=== PATIENT | male | born 1955 | race Caucasian/White ===

== ENCOUNTER 2016-04-30 11:38 | Observation (INO) | payer MEDICARE ==
[~2016-04-30] VITALS: Ht 175.3 cm; Wt 91.0 kg
[~2016-04-30 11:38] MED LIST: BUPR300T PO; FLUO20TA20 PO; PERC10TA27 PO; PLAV75TA PO; QUIN20TA22 PO; VYTO10TA39 PO
[2016-04-30 11:40] VITALS: BP_SYST 152; BP_DIAS 152; BP_DIAS 78; PULSE 90; RESP 14; TEMP 97.9; O2SAT 99
[2016-04-30 13:07] LABS: AUTOMATED NEUTROPHIL # 5.9 TH/MM3 (1.8-7.7); BASOPHIL # 0.1 TH/MM3 (0-0.2); BASOPHIL % 0.7 % (0.0-2.0); EOSINOPHIL # 0.3 TH/MM3 (0-0.4); EOSINOPHIL % 2.9 % (0.0-4.0); HEMO FLAGS DIFF FINAL; LYMPH % 29.9 % (9.0-44.0); LYMPHOCYTE # 2.9 TH/MM3 (1.0-4.8); MEAN CELL VOLUME 90.8 FL (80.0-100.0); MEAN CORPUSCULAR HEMOGLOBIN 31.5 PG (27.0-34.0); MEAN CORPUSCULAR HGB CONC 34.7 % (32.0-36.0); MONO % 6.4 % (0.0-8.0); NEUT % 60.1 % (16.0-70.0); PLATELET COUNT 254 TH/MM3 (150-450); RED BLOOD COUNT 5.07 MIL/MM3 (4.50-5.90); RED CELL DISTRIBUTION WIDTH 12.6 % (11.6-17.2); WHITE BLOOD COUNT 9.8 TH/MM3 (4.0-11.0)
--- NOTE | 2016-04-30 13:11 | RADRPT ---
EXAM DATE/TIME: 04/30/2016 12:51 [facility] COMPARISON: No previous studies available for comparison. INDICATIONS : Chest pain. MEDICAL HISTORY : Myocardial infarction. SURGICAL HISTORY : Coronary artery stent. Pacemaker. ENCOUNTER: Initial ACUITY: 2 days PAIN SCORE: 5/10 LOCATION: middle chest. FINDINGS: A single view of the chest demonstrates pacer leads overlying right atrium and right ventricle. Minim al basilar atelectasis. No effusion or pneumothorax. Heart size mildly enlarged. CONCLUSION: 1. Minimal basilar atelectasis. Pacer leads overlie right atrium and right ventricle. Juan Antonio Gutierrez MD on April 30, 2016 at 13:08 Board Certified Radiologist. This report was verified electronically.
[2016-04-30 13:27] LABS: ANION GAP 10 MEQ/L (5-15); BLOOD UREA NITROGEN 13 MG/DL (7-18); CHLORIDE 104 MEQ/L (98-107); GLOMERULAR FILTRATION RATE 81 ML/MIN (>89); POTASSIUM 3.8 MEQ/L (3.5-5.1); SODIUM (NA) 138 MEQ/L (136-145)
[2016-04-30 13:33] LABS: CREATINE KINASE 76 U/L (39-308)
--- NOTE | 2016-04-30 15:02 | PD ---
HPI Chief Complaint: Chest Pain Time Seen by Provider: 14:35 Travel History International Travel<30 days: No Contact w/Intl Traveler<30days: No Traveled to known affect area: No History of Present Illness HPI This patient complains of some chest pain and pressure. Located in the center sternum. Symptoms are nonexertional. Been going on and off for a couple weeks. He says that 2 weeks ago while in [place] visiting he had to separate syncopal episodes. He has not had them evaluated. He does have a pacer. He has 2 stents. No recent cardiac evaluation per his report. Symptoms severity was moderate. No alleviating factors. Not currently having any chest discomfort. PFSH Past Medical History Hx Anticoagulant Therapy: Yes (plavix) Cancer: Yes (melanoma) Cardiac Catheterization: Yes (WITH STENT PLACEMENT) Cardiovascular Problems: Yes (DE/ Stent) High Cholesterol: Yes Chest Pain: No Coronary Artery Disease: Yes Diabetes: No Gastrointestinal Disorders: Yes (IBS) Glaucoma: No Hepatitis: No Hiatal Hernia: No Hypertension: Yes Respiratory: Yes (MARY) Integumentary: No Myocardial Infarction: Yes Thyroid Disease: No Past Surgical History Joint Replacement: Yes (RIGHT THUMB) Pacemaker: Yes Thoracic Surgery: No Social History Alcohol Use: Yes (OCC.) Tobacco Use: No Substance Use: No Allergies-Medications (Allergen,Severity, Reaction): Coded Allergies: Aspirin (Verified Adverse Reaction, Severe, 04/30/16) Morphine (Verified Adverse Reaction, Severe, 04/30/16) Reported Meds & Prescriptions Reported Meds & Active Scripts Active Review of Systems General / Constitutional: No: Fever Eyes: No: Visual changes HENT: Positive: Lightheadedness, No: Headaches Cardiovascular: Positive: Chest Pain or Discomfort, Syncope Respiratory: No: Shortness of Breath Gastrointestinal: No: Abdominal Pain Genitourinary: No: Dysuria Musculoskeletal: No: Pain Skin: No Rash Neurologic: Positive: Dizziness, Syncope, No: Weakness Psychiatric: No: Depression Endocrine: No: Polydipsia Hematologic/Lymphatic: No: Easy Bruising Physical Exam Narrative GENERAL: Well-nourished, well-developed patient in no apparent distress. SKIN: Warm and dry. HEAD: Atraumatic. Normocephalic. EYES: Pupils equal and round. No scleral icterus. No injection or drainage. ENT: No nasal bleeding or discharge. Mucous membranes pink and moist. NECK: Trachea midline. No JVD. CARDIOVASCULAR: Regular rate and rhythm. No murmur appreciated. RESPIRATORY: No accessory muscle use. Clear to auscultation. Breath sounds equal bilaterally. GASTROINTESTINAL: Abdomen soft, non-tender, nondistended. Hepatic and splenic margins not palpable. MUSCULOSKELETAL: No obvious deformities. No clubbing. No cyanosis. No edema. NEUROLOGICAL: Awake and alert. No obvious cranial nerve deficits. Motor grossly within normal limits. Normal speech. PSYCHIATRIC: Appropriate mood and affect; insight and judgment normal. Data Data Last Documented VS Vital Signs Date Time Temp Pulse Resp B/P Pulse Ox O2 Delivery O2 Flow Rate FiO2 04/30/16 11:40 97.9 90 14 /152 99 Room Air Orders Electrocardiogram (04/30/16 ) Complete Blood Count With Diff (04/30/16 12:31) Basic Metabolic Panel (Bmp) (04/30/16 12:31) Ckmb (Isoenzyme) Profile (04/30/16 12:31) Troponin I (04/30/16 12:31) Chest, Single Ap (04/30/16 12:31) Admit Order (Ed Use Only) (04/30/16 15:32) Labs Laboratory Tests Test 04/30/16 12:46 White Blood Count 9.8 TH/MM3 Red Blood Count 5.07 MIL/MM3 Hemoglobin 16.0 GM/DL Hematocrit 46.0 % Mean Corpuscular Volume 90.8 FL Mean Corpuscular Hemoglobin 31.5 PG Mean Corpuscular Hemoglobin 34.7 % Concent Red Cell Distribution Width 12.6 % Platelet Count 254 TH/MM3 Mean Platelet Volume 7.4 FL Neutrophils (%) (Auto) 60.1 % Lymphocytes (%) (Auto) 29.9 % Monocytes (%) (Auto) 6.4 % Eosinophils (%) (Auto) 2.9 % Basophils (%) (Auto) 0.7 % Neutrophils # (Auto) 5.9 TH/MM3 Lymphocytes # (Auto) 2.9 TH/MM3 Monocytes # (Auto) 0.6 TH/MM3 Eosinophils # (Auto) 0.3 TH/MM3 Basophils # (Auto) 0.1 TH/MM3 CBC Comment DIFF FINAL Differential Comment Sodium Level 138 MEQ/L Potassium Level 3.8 MEQ/L Chloride Level 104 MEQ/L Carbon Dioxide Level 24.0 MEQ/L Anion Gap 10 MEQ/L Blood Urea Nitrogen 13 MG/DL Creatinine 0.95 MG/DL Estimat Glomerular Filtration 81 ML/MIN Rate Random Glucose 90 MG/DL Calcium Level 9.1 MG/DL Total Creatine Kinase 76 U/L Troponin I LESS THAN 0.02 NG/ML MDM Medical Decision Making Medical Screen Exam Complete: Yes Emergency Medical Condition: Yes Medical Record Reviewed: Yes Differential Diagnosis Differential diagnosis includes DE, angina, pericarditis, pleurisy, GERD, anxiety. Narrative Course I have reviewed the patient's electronic medical record. IV placed I reviewed the EKG which shows sinus rhythm but no acute ST elevation I reviewed the chest x-ray which is normal Extended cardiac monitoring shows sinus rhythm without ectopy CBC is normal Metabolic profile is normal CK is normal Troponin is normal Coagulation studies are normal Patient requires telemetry observation for evaluation of chest pain and syncope. I discussed with hospitalist. He recommends [employer] rep be called in to interrogate the pacer which we have done. Diagnosis Primary Impression: Precordial chest pain Additional Impression: Syncope Qualified Code: R55 - Syncope, unspecified syncope type Admitting Information Admitting Physician Requests: Observation Qasim Jay MD Apr 30, 2016 15:02
[2016-04-30] MEDS ORDERED: SODIUM CHLORIDE 0.9% FLUSH 5 ML FLUSH FLUSH PRN (16:00)
[2016-04-30] MEDS ORDERED: ONDANSETRON HCL 4 MG/2 ML VIAL IVP PRN (16:00)
[2016-04-30] MEDS ORDERED: NALOXONE HCL 0.4 MG/ML AMP IV PRN (16:00)
--- NOTE | 2016-04-30 16:38 | MH ---
cc: MATT WILLIAM DATE OF ADMISSION 04/30/2016 DATE OF [address] Matt William. PRIMARY CARE PHYSICIAN Dr. Goff. REASON FOR ADMISSION Chest pain and dizziness. HISTORY OF THE PRESENT ILLNESS The patient is very pleasant 60-year male with significant past history of CAD status post SD in the past. Also has a history of stent placement and pacemaker placement. As per the patient he was in [place] during his vacation. He had on and off chest pressure. The pressure is mild to moderate type. It is kind of retrosternal type. There was no other associated symptoms. But sometimes he has dizziness which is without chest pain. He passed out twice. He passed out a week ago Friday and then last Friday. Both times he was getting dizzy and then he blacked out and fell down. He regained consciousness. He has no other associated symptoms with it. Because of these reason he came to the emergency room. In the emergency room he was evaluated by the emergency room physician, because of these symptoms was recommended for admission. At present the patient has no chest pain. There is no dizziness. He is feeling better. But at times within the past week to two weeks he had chest pressure and jaw pressure. PAST MEDICAL HISTORY 1. CAD status post stenting. 2. History of SD in the past. 3. History of melanoma. 4. History of diabetes. 5. History of obstructive sleep apnea. 6. History of high cholesterol. 7. An ex-smoker, he used to smoke. He quit one year ago. 8. Also a history of pacemaker placement. REVIEW OF SYSTEMS As described in the history of present illness. Otherwise negative for 10 systems. SOCIAL HISTORY The patient does not smoke, he quit one year ago. He does not do any drugs. He occasionally drinks. FAMILY HISTORY Noncontributory. PHYSICAL EXAMINATION GENERAL: The patient is alert and oriented times three. Well built, well-nourished lying in bed without any apparent distress at present. VITAL SIGNS: Show the patient is afebrile. Pulse is in the 90s, respiratory rate 14, blood pressure 152/100, pulse oximetry is 99% on room air. HEENT: Head is atraumatic, normocephalic. Eyes negative conjunctivae injection or icterus. Mouth unremarkable. NECK: Supple. Negative increase in JVD. Negative thyromegaly. Central trachea. CHEST: Clear to auscultation. CARDIOVASCULAR: S1 and S2 audible. Unable to hear any S3 gallop. ABDOMEN: Soft, non-tender, no organomegaly. Positive bowel sounds. MUSCULOSKELETAL: Extremities no cyanosis or pedal edema appreciated. TELEGRAPHIC INSTRUMENT SUPERVISOR: Grossly intact. SKIN: Warm and moist. PSYCHIATRIC: Appropriate mood and affect. LABORATORY DATA Investigations, CBC within normal limits. BMP within normal limits. Troponin less than 0.02. CK 76. IMAGING Chest x-ray was done which shows minimal bibasilar atelectasis. Pacer lead overlying the right atrium and right ventricle. EKG shows electronic atrial pacer. Incomplete right bundle-branch block. ASSESSMENT 1. Chest pain, pressure with a history of CAD and history of SD in the past, rule out SD. 2. Dizziness with a syncopal episode. 3. Uncontrolled hypertension. 4. Ex-smoker. 5. History status post pacemaker placement. PLAN The patient admitted to the floor. Continue with tele. Cardiology consult. Serial troponin. Nitro paste. Continue some of home medication. Monitor blood pressure. Continue Plavix. As per the patient he does not take aspirin because of severe heartburn. We will avoid aspirin. Condition discussed with the patient in detail. See orders. Further recommendation to follow as the patient progresses. Condition is guarded. Matt William MD JP/DHRUV /3:46 PM /4:11 PM
[2016-04-30] MEDS ORDERED: ALPR0.5T3 PO (16:55)
[2016-04-30] MEDS ORDERED: CLOP75TA PO (16:55)
[2016-04-30] MEDS ORDERED: FLUO1TAB3 PO (16:55)
[2016-04-30] MEDS ORDERED: FOLI5CAP PO (16:55)
[2016-04-30] MEDS: ENOXAPARIN SODIUM 40 MG/0.4 ML SYRINGE SQ SCH (16:55)
[2016-04-30] MEDS ORDERED: FLUO20CA4 PO (16:55)
[2016-04-30] MEDS ORDERED: QUIN20TA4 PO (16:55)
[2016-04-30] MEDS ORDERED: EVOL1.7I (16:55)
[2016-04-30] MEDS ORDERED: WELLTAB39 PO (16:55)
[2016-04-30] MEDS: SODIUM CHLOR 0.9% 1000 ML INJ 1,000 ML IV SCH (16:56)
[2016-04-30 17:11] VITALS: BP 147/81; PULSE 73; RESP 18; O2SAT 97
[2016-04-30] MEDS: NITROGLYCERIN 2% OINT 1 GM PACKET TOPICAL SCH ×2 (18:00→23:56)
[2016-04-30 20:07] VITALS: BP 128/72; PULSE 70; PULSE 72; RESP 18; TEMP 97.8; O2SAT 98
[2016-04-30] MEDS: ACETAMINOPHEN 325 MG TAB PO PRN (20:29)
[2016-04-30] MEDS: SODIUM CHLORIDE 0.9% FLUSH 5 ML FLUSH FLUSH SCH (20:29)
[2016-04-30] MEDS: METOPROLOL TARTRATE 25 MG TAB PO SCH (21:00)
[2016-04-30] MEDS: TEMAZEPAM 15 MG CAP PO PRN (21:00)
[2016-05-01] VITALS (9 sets, daily range): BP systolic 98–139; BP diastolic 54–86; PULSE 67–75; RESP 18–20; TEMP 97.5–98.9; O2SAT 96–98
[2016-05-01] MEDS: SODIUM CHLOR 0.9% 1000 ML INJ 1,000 ML IV SCH ×3 (01:49→21:49)
[2016-05-01] MEDS: ACETAMINOPHEN 325 MG TAB PO PRN ×3 (03:43→15:59)
[2016-05-01 04:00] LABS: AUTOMATED NEUTROPHIL # 4.2 TH/MM3 (1.8-7.7); BASOPHIL # 0.1 TH/MM3 (0-0.2); BASOPHIL % 0.7 % (0.0-2.0); EOSINOPHIL # 0.3 TH/MM3 (0-0.4); EOSINOPHIL % 3.4 % (0.0-4.0); HEMO FLAGS DIFF FINAL; LYMPH % 37.6 % (9.0-44.0); LYMPHOCYTE # 3.2 TH/MM3 (1.0-4.8); MEAN CELL VOLUME 90.2 FL (80.0-100.0); MEAN CORPUSCULAR HEMOGLOBIN 31.7 PG (27.0-34.0); MEAN CORPUSCULAR HGB CONC 35.1 % (32.0-36.0); MONO % 7.7 % (0.0-8.0); NEUT % 50.6 % (16.0-70.0); PLATELET COUNT 226 TH/MM3 (150-450); RED BLOOD COUNT 4.55 MIL/MM3 (4.50-5.90); RED CELL DISTRIBUTION WIDTH 12.5 % (11.6-17.2); WHITE BLOOD COUNT 8.4 TH/MM3 (4.0-11.0)
[2016-05-01 04:12] LABS: ANION GAP 8 MEQ/L (5-15); BICARBONATE 25.6 MEQ/L (21.0-32.0); BLOOD UREA NITROGEN 15 MG/DL (7-18); CHLORIDE 107 MEQ/L (98-107); GLOMERULAR FILTRATION RATE 67 ML/MIN (>89); POTASSIUM 4.3 MEQ/L (3.5-5.1); SODIUM (NA) 141 MEQ/L (136-145)
[2016-05-01] MEDS: NITROGLYCERIN 2% OINT 1 GM PACKET TOPICAL SCH ×3 (05:58→18:00)
[2016-05-01] MEDS ORDERED: PROZ20CA11 PO (07:53)
--- NOTE | 2016-05-01 08:26 | MB ---
cc: ANDREEA MANCUSO M.D. DATE OF CONSULTATION 05/01/2016 REASON FOR CONSULTATION Evaluation of syncope and chest pain HISTORY OF PRESENT ILLNESS Gato Hernandez is a 60-year-old man well-known to me. He has known coronary artery disease. He had an inferior ST-segment elevation CO October 08, 2000. He received thrombolytic therapy and had stenting of the right coronary artery. This was a 3.0 x 18 mm tetra stent in the mid right coronary artery. Then a couple weeks later, he went back in for a stent of the circumflex artery. His last heart cath was performed July 01, 2007. At that time, his ejection fraction was 55% with normal wall motion. LAD had a 20-30% ostial diagonal branch stenosis. Circumflex artery showed a patent stent. Right coronary artery showed 20-30% proximal disease. Mid stent was widely patent and 30% mid disease. He has been treated medically. He describes having chest discomfort like a pressure in his chest lasting anywhere from 15 minutes to an hour that occurs sporadically once or twice a week. It is not necessarily exercise related. He thinks it is a little more frequent. He does not have true exertional angina. He was in [place] for two weeks on vacation and he says he was extremely stressed out due to family relationships with his daughter. The degree of stress he describes as quite severe. About two weeks ago, he was walking with his daughter to an medical physiologist's office and he describes feeling a "a big carrasquillo". His legs felt weak and he thought he was going to pass out. He sat down on the ground and in about five minutes, he felt better and continued on. New , he got up to walk to the kitchen. He actually passed out at that time. His was with him. He felt dizzy for a while. He says things kind of slowed down like they were in slow motion. He was embarrassed because there was a lot of company at the house. He recovered and had no further spells. The patient, once he got back to [place], contacted me about the chest pain and syncope and I advised him to go the ER and he subsequently has been admitted. He has had no chest discomfort here. His cardiac enzymes are normal. He has had no syncopal or presyncopal episodes here. He quit smoking about a year ago or less. PAST MEDICAL HISTORY Includes: 1. Anxiety 2. Sleep apnea, but does not use apnea machine 3. Coronary artery disease 4. COPD 5. Degenerative joint disease involving his hands, hips and ankles 6. Depression 7. Diverticulosis 8. Hyperlipidemia 9. Essential hypertension 10. Irritable bowel syndrome 11. Previous back pain 12. Previous melanoma removed in 1997 from the left leg 13. Previous CO 14. Medtronic pacemaker first one inserted around 2576-6578, a second one about six months ago. 15. Peripheral arterial disease. 16. Pre-diabetes 17. Sick sinus syndrome PAST SURGICAL HISTORY Includes: 1. His coronary stents 2. Carpal tunnel release 3. Pacemaker 4. Thoracic outlet syndrome surgery on the left side 5. Thumb surgery 6. Vertebral fracture from a fall at age 36 MEDICATIONS Brought to admission include: 1. Alprazolam 2. Bupropion 3. Clopidogrel 75 mg 4. fluoxetine 20 mg 5. Oxycodone 6. Acetaminophen 10/325 every six hours as needed 7. Quinapril 20 mg daily 8. Repatha 140 mg every two weeks 9. Vitamins 10. Vytorin 10/80 daily ALLERGIES HE IS INTOLERANT OF ASPIRIN DUE TO STOMACH UPSET. MORPHINE MAKES HIM PARANOID. SOCIAL HISTORY He did not quit smoking until about a year ago or less. Alcohol use is only occasional. He is . He has three children. REVIEW OF SYSTEMS Review of systems is negative except for what is mentioned in the History of present illness. PHYSICAL EXAMINATION A well-developed, well-nourished man in no acute distress. VITAL SIGNS: Charted. HEENT: Exam unremarkable. NECK: No JVD, no bruits. CHEST: Clear to auscultation. He has a pacemaker in the left infraclavicular region well-healed. CARDIAC: Exam S1-S2 regular rate rhythm. No murmurs, gallops. ABDOMEN: Soft and nontender. No masses, organomegaly. EXTREMITIES: No clubbing, cyanosis or edema. His EKG's here demonstrate atrially paced rhythm, incomplete right bundle branch block. His cardiac enzymes, his troponin has been checked three times with all values being normal. Hematocrit 41, creatinine is 1.2 and 0.95 yesterday. Chest x-ray showed minimal basilar atelectasis and pacemaker leads in the right atrium and right ventricle. IMPRESSION A 60-year-old man with known coronary artery disease. He has been extremely stressed the last couple of weeks due to family relationships and being out of state. He had two episodes, one of presyncope, one of syncope. His pacemaker has been interrogated. There were no arrhythmias on the New years Even. There was an episode of SVT lasting about two seconds March 25 at 2:33 p.m. both charted to if that correlates with anything clinically. The chest discomfort has worsened, but not classic. He does not have exertional angina. RECOMMENDATIONS I am going to start with a Lexiscan nuclear stress test, a carotid Doppler and a 2-D echo. If we find significant ischemia, I will plan to proceed with a cardiac catheterization. We will see how as workup progresses. Further therapy be determined. MD REJI Madrid/RADHA /7:30 AM /8:07 AM
--- NOTE | 2016-05-01 08:38 | HHI.PR ---
Subjective Subjective Remarks mild chest discomfort, none now some anxiety no sob tele reviewed, artifact seen by Dr. Estes, NPO for STT today has no other questions Review of Systems Constitutional Constitutional Remarks 12 point ROS completed, negative except as noted above Vitals/Results Vital Signs Vital Signs Date Time Temp Pulse Resp B/P Pulse Ox O2 Delivery O2 Flow Rate FiO2 05/01/16 07:25 97.6 73 18 123/83 97 05/01/16 04:35 98.9 72 18 98/54 96 05/01/16 00:59 98.9 67 18 122/73 97 04/30/16 20:07 72 04/30/16 20:07 97.8 70 18 128/72 98 04/30/16 17:11 73 18 147/81 97 Room Air 04/30/16 11:40 97.9 90 14 152/78 99 Room Air CBC/BMP: 05/01/16 0337 05/01/16 0337 Lab Results Laboratory Tests Test 04/30/16 04/30/16 05/01/16 12:46 21:33 03:37 White Blood Count 9.8 TH/MM3 8.4 TH/MM3 Red Blood Count 5.07 MIL/MM3 4.55 MIL/MM3 Hemoglobin 16.0 GM/DL 14.4 GM/DL Hematocrit 46.0 % 41.0 % Mean Corpuscular Volume 90.8 FL 90.2 FL Mean Corpuscular Hemoglobin 31.5 PG 31.7 PG Mean Corpuscular Hemoglobin 34.7 % 35.1 % Concent Red Cell Distribution Width 12.6 % 12.5 % Platelet Count 254 TH/MM3 226 TH/MM3 Mean Platelet Volume 7.4 FL 7.5 FL Neutrophils (%) (Auto) 60.1 % 50.6 % Lymphocytes (%) (Auto) 29.9 % 37.6 % Monocytes (%) (Auto) 6.4 % 7.7 % Eosinophils (%) (Auto) 2.9 % 3.4 % Basophils (%) (Auto) 0.7 % 0.7 % Neutrophils # (Auto) 5.9 TH/MM3 4.2 TH/MM3 Lymphocytes # (Auto) 2.9 TH/MM3 3.2 TH/MM3 Monocytes # (Auto) 0.6 TH/MM3 0.6 TH/MM3 Eosinophils # (Auto) 0.3 TH/MM3 0.3 TH/MM3 Basophils # (Auto) 0.1 TH/MM3 0.1 TH/MM3 CBC Comment DIFF FINAL DIFF FINAL Differential Comment Sodium Level 138 MEQ/L 141 MEQ/L Potassium Level 3.8 MEQ/L 4.3 MEQ/L Chloride Level 104 MEQ/L 107 MEQ/L Carbon Dioxide Level 24.0 MEQ/L 25.6 MEQ/L Anion Gap 10 MEQ/L 8 MEQ/L Blood Urea Nitrogen 13 MG/DL 15 MG/DL Creatinine 0.95 MG/DL 1.12 MG/DL Estimat Glomerular Filtration 81 ML/MIN 67 ML/MIN Rate Random Glucose 90 MG/DL 102 MG/DL Calcium Level 9.1 MG/DL 8.4 MG/DL Total Creatine Kinase 76 U/L Troponin I LESS THAN 0.02 LESS THAN 0.02 LESS THAN 0.02 NG/ML NG/ML NG/ML Physical Exam General General Appearance: Well Developed, Well Nourished, No Acute Distress, Comfortable Eyes Eye Exam: Pupils Equal Ears & Nose Ears & Nose Exam: Nasal Mucosa [place] Throat Throat Exam: Oral Mucosa [place] & Moist Neck Neck Exam: Neck Supple, Trachea Midline Pulmonary Resp Exam: Clear Bilaterally Cardiology CV Exam: Regular, Good Perfusion Gastrointestinal/Abdomen GI Exam: Soft, Non-Tender, Bowel Sounds Present, Non-Distended Musculoskeletal MS Exam: Joints Intact Integumentary Skin Exam: Warm, Dry Extremeties Extremities Exam: No Edema, Pedal Pulses Palpable Neurologic Neuro Exam: Alert, Awake, Oriented, Speech Clear, Moving All Extremities, No Focal Deficits Psychiatric Psych Exam: Appropriate Responses VTE Prophylaxis VTE Prophylaxis Meds: Lovenox PUD Prophylasis PUD Prophylaxis: Protonix Assessment/Plan Problem List: (1) Precordial chest pain (2) Syncope (3) Uncontrolled hypertension (4) prior tobacco use (5) Anxiety Assessment/Plan appreciate cardiology input serial cardiac enzymes negative Dr. Estes has evaluated, plans for STT today, echo and CUS Telemetry monitoring Continue Plavix DC Ntg, c/o headache c/o anxiety, resume Xanax, Prozac, Wellbutrin Continue PPI Lovenox for DVT prophylaxis will f/u on test results, if neg poss dc later today D/W RN D/W Dr. William D/W pt. This patient was seen by myself and Dr. William, this note is written on his behalf. Problem Qualifiers (1) Syncope: Qualified Code: R55 - Syncope, unspecified syncope type Elizabeth Whitten May 01, 2016 08:38
[2016-05-01] MEDS: SODIUM CHLORIDE 0.9% FLUSH 5 ML FLUSH FLUSH SCH ×2 (08:57→21:00)
[2016-05-01] MEDS: FLUoxetine HCL 20 MG CAP PO SCH ×2 (08:58→21:20)
[2016-05-01] MEDS: buPROPion HCL 150 MG SUSTAINED RELEASE TAB PO SCH ×2 (08:58→21:00)
[2016-05-01] MEDS: CLOPIDOGREL 75 MG TAB PO SCH (08:58)
[2016-05-01] MEDS: FOLIC ACID 1 MG TAB PO SCH (08:58)
[2016-05-01] MEDS: PANTOPRAZOLE SOD 40 MG DELAYED RELEASE TAB PO SCH (08:58)
[2016-05-01] MEDS: METOPROLOL TARTRATE 25 MG TAB PO SCH ×2 (09:00→21:20)
[2016-05-01] MEDS: LISINOPRIL 20 MG TAB PO SCH (09:00)
--- NOTE | 2016-05-01 09:37 | RADRPT ---
EXAM DATE/TIME: 05/01/2016 08:40 [facility] COMPARISON: No previous studies available for comparison. INDICATIONS : Syncope. MEDICAL HISTORY : Myocardial infarction. Hypercholesterolemia. Hypertension. Coronary artery disease. Anticoagulant the rapy, Plavix. Melanoma. SURGICAL HISTORY : Pacemaker. Cardiac catheterization. Bilateral carpal tunnel repair. ENCOUNTER: Initial ACUITY: 1 day PAIN SCORE: 7/10 LOCATION: Bilateral neck PEAK SYSTOLIC VELOCITIES (cm/sec): ICA/CCA RATIO: Right: 2.0 Left: 1.2 ICA: Right: 123 Left: 101 CCA: Right: 62 Left: 85 ECA: Right: 94 Left: 167 VERTEBRAL: Right: 34 antegrade Left: 73 antegrade Elevated flow velocities and ICA/CCA ratios have been found to correlate with increased degrees of vessel stenosis, calculated as percentage of diameter relative to a normal segment of distal ICA/CCA FINDINGS: RIGHT CAROTID: Moderate plaque is present on the right with elevated ratio. The velocities would suggest this is no t significant. LEFT CAROTID: No significant stenosis is visualized. The waveforms are within normal limits. VERTEBRAL ARTERIES: Antegrade flow is seen in both vertebral arteries. MISCELLANEOUS: None. CONCLUSION: Incongruent velocity and ratios on the right. CTA is suggested. Stone Grant MD FACR on May 01, 2016 at 9:34 Board Certified Radiologist. This report was verified electronically.
--- NOTE | 2016-05-01 12:01 | EKG ---
Date Performed: 04/30/2016 Time Performed: 12:33:24 PTAGE: 60 years EKG: probable Sinus rhythm INCOMPLETE RIGHT BUNDLE BRANCH BLOCK ABNORMAL RHYTHM ECG NO PREVIOUS TRACING DOCTOR: Chi Worrell Interpretating Date/Time 05/01/2016 12:00:17
[2016-05-01] MEDS ORDERED: REGADENOSON INJ 0.4 MG/5 ML SYR ONE (14:44)
[2016-05-01] MEDS: ENOXAPARIN SODIUM 40 MG/0.4 ML SYRINGE SQ SCH (15:59)
[2016-05-01] MEDS ORDERED: ALPRAZolam 0.5 MG TAB PO PRN (16:00)
--- NOTE | 2016-05-01 16:04 | EC ---
Study Study Date:05/01/2016 STUDY CONCLUSIONS SUMMARY - Left ventricle: The cavity size was normal. Wall thickness was normal. Systolic function was normal. The estimated ejection fraction was in the range of 55% to 60%. Wall motion was normal; there were no regional wall motion abnormalities. - Aortic valve: Valve area: 1.54cm^2(VTI). Valve area: 1.5cm^2 (Vmax). If LV function is below 40, please consider prescribing an ACEI or ARB or document rationale for non-use. PROCEDURE DATA STUDY STATUS: Elective. Procedure: Transthoracic echocardiography. Image quality was good. Scanning was performed from the parasternal, apical, and subcostal acoustic windows. Study completion: The patient tolerated the procedure well. Transthoracic echocardiography. M-mode, complete 2D, complete spectral Doppler, and color Doppler. Height: Height: 69in. Weight: Weight: 199.6lb. Body mass index: BMI: 29.5kg/m^2. Body surface area: BSA: 2.07m^2. Patient status: Inpatient. CARDIAC ANATOMY LEFT VENTRICLE: The cavity size was normal. Wall thickness was normal. Systolic function was normal. The estimated ejection fraction was in the range of 55% to 60%. Wall motion was normal; there were no regional wall motion abnormalities. AORTIC VALVE: Trileaflet; normal thickness leaflets. Doppler: Transvalvular velocity was within the normal range. There was no stenosis. No regurgitation. Valve area: 1.54cm^2(VTI). Indexed valve area: 0.74cm^2/m^2 (VTI). Valve area: 1.5cm^2 (Vmax). Indexed valve area: 0.72cm^2/m^2 (Vmax). Mean gradient: 3mm Hg (S). AORTA: Aortic root: The aortic root was normal in size. MITRAL VALVE: Structurally normal valve. Doppler: Transvalvular velocity was within the normal range. There was no evidence for stenosis. Trace to mild regurgitation. LEFT ATRIUM: The atrium was normal in size. RIGHT VENTRICLE: The cavity size was normal. Wall thickness was normal. PULMONIC VALVE: Doppler: Transvalvular velocity was within the normal range. There was no evidence for stenosis. No regurgitation. TRICUSPID VALVE: Structurally normal valve. Doppler: Transvalvular velocity was within the normal range. No regurgitation. PULMONARY ARTERY: The main pulmonary artery was normal-sized. Systolic pressure was within the normal range. RIGHT ATRIUM: The atrium was normal in size. PERICARDIUM: There was no pericardial effusion. SYSTEMIC VEINS: Inferior vena cava: The vessel was normal in size. Patient weight: 199.6lb _Ejection fraction:_ 65-75% _Fractional shortening:_ 32% up to 5Kg 5-11.5Kg 11.6-22.9Kg 23-45Kg 45-57Kg Aortic Root 7-13 <17 13-22 17-27 17-27 LA diam 6-13 <23 24-38 33-47 37-40 RVID 10-17 7-15 7-15 7-18 8-17 LVIDd 12-22 <32 24-38 33-47 37-40 LVPW 2-4 3-6 5-7 6-8 7-8 IVS 2-4 3-6 5-7 6-8 7-8 BASIC MEASUREMENTS ADULT NORMAL Left ventricle LV internal dimension, ED, chordal *39.7 mm 43-52 level, PLAX LV internal dimension, ES, chordal 27 mm 23-38 level, PLAX Fractional shortening, chordal level, 32 % >29 PLAX LV posterior wall thickness, ED 10.2 mm IVS/LVPW ratio, ED 0.99 <1.3 Ventricular septum Septal thickness, ED 10.1 mm Aortic valve Leaflet separation 17 mm 15-26 Aorta Root diameter, ED 23 mm Left atrium Anterior-posterior dimension 34 mm Anterior-posterior dimension index 1.64 cm/m^2 <2.2 Right ventricle RV internal dimension, ED, PLAX 33 mm 19-38 BASIC MEASUREMENTS ADULT NORMAL Aortic valve Leaflet separation 17 mm 15-26 DOPPLER MEASUREMENTS ADULT NORMAL Aortic valve Peak velocity, S 106 cm/s Mean velocity, S 81.6 cm/s VTI, S 22.6 cm Mean gradient, S 3 mm Hg Valve area, VTI 1.54 cm^2 Valve area index, VTI 0.74 cm^2/m^2 Valve area, Vmax 1.5 cm^2 Valve area index, Vmax 0.72 cm^2/m^2 Mitral valve Peak E-wave velocity 63.2 cm/s Peak A-wave velocity 72.6 cm/s Deceleration time 187 ms 150-230 Peak E/A ratio 0.9 Tricuspid valve Regurgitant peak velocity 233 cm/s Peak RV-RA gradient, S 22 mm Hg Maximal regurgitant velocity 233 cm/s Pulmonic valve Peak velocity, S 53.8 cm/s LEGEND: Mean values are shown as u=mean value. Asterisk (*) sotelo values outside specified normal range. Prepared and signed by Twan Obregon [id number]
--- NOTE | 2016-05-01 16:07 | RADRPT ---
EXAM DATE/TIME: 05/01/2016 14:23 [facility] COMPARISON: No previous studies available for comparison. INDICATIONS : Retrosternal chest pain with dizziness and syncope. Angina. Coronary artery disease. DOSE: 25.4 mCi Tc99m Myoview at stress. 8.1 mCi Tc99m Myoview at rest. 0.4 mg Lexiscan STRESS SYMPTOMS: Chest pain, nausea, dyspnea and arms and legs tingling. EJECTION FRACTION: 56% MEDICAL HISTORY : Diabetes mellitus type 2. Myocardial infarction. Melanoma. SURGICAL HISTORY : Coronary artery stent. Pacemaker. ENCOUNTER: Initial ACUITY: 1 day PAIN SCALE: 5/10 LOCATION: Retrosternal chest TECHNIQUE: The patient underwent pharmacologic stress with infusion of prescribed dose. Continuous ECG tracing was monitored during stress. Gated SPECT imaging was performed after stress and conventional SPECT i maging was performed at rest. The examination was performed on a SPECT/CT scanner, both attenuation and non-corrected datasets were reviewed. FINDINGS: The best perfused myocardium is the anterior lateral wall followed by the inferior wall. Moderate gut activity does obscure the inferior wall. There is very minimal redistribution in the mid inferior w all of the very small segment of myocardium. There is normal wall motion across this segment with mi ld hypokinesis of the inferior wall. Ejection fraction is 56%. CONCLUSION: Negative for significant stress-induced ischemia. Correlation suggested. RISK CATEGORY: Low (<1% Annual Mortality Rate) Stone Grant MD FACR on May 01, 2016 at 16:03 Board Certified Radiologist. This report was verified electronically.
[2016-05-01] MEDS ORDERED: IOHEXOL 350 MG/ML 10 ML VIAL (for RAD DIAG) IV ONE (20:02)
--- NOTE | 2016-05-01 20:21 | RADRPT ---
EXAM DATE/TIME: 05/01/2016 19:58 [facility] COMPARISON: No previous studies available for comparison. INDICATIONS : Abnormal ultrasound of the carotid arteries; evaluate for occlusion. IV CONTRAST: 80 cc Omnipaque 350 (iohexol) IV RADIATION DOSE: 28.34 CTDIvol (mGy) MEDICAL HISTORY : Cardiovascular disease. Hypertension. Melanoma SURGICAL HISTORY : None. ENCOUNTER: Initial ACUITY: 2 days PAIN SCALE: 0/10 LOCATION: neck TECHNIQUE: Volumetric scanning was performed using a multirow detector CT scanner. The data was post processed with a variety of visualization algorithms including full-volume maximum intensity projection, multip lanar sliding thin-slab reformation, curved-planar reformation, and surface-rendering techniques. Us ing automated exposure control and adjustment of the mA and/or kV according to patient size, radiatio n dose was kept as low as reasonably achievable to obtain optimal diagnostic quality images. FINDINGS: AORTIC ARCH: There is a three-vessel origin of the great vessels from the aorta. No evidence of ostial narrowing. RIGHT CAROTID: The common carotid artery is intact. Mild disease in the right bulb with mild narrowing. The external carotid artery is intact. LEFT CAROTID: The common carotid artery is intact. Mild disease in the left bulb without significant stenosis. The external carotid artery is intact. VERTEBRALS: The vertebral arteries have a symmetric diameter. No stenotic lesions are seen. CONCLUSION: No significant stenosis in either carotid artery. Mild disease within the bulbs bilaterally greater o n the right Kenny Vallecillo MD on May 01, 2016 at 20:15 Board Certified Radiologist. This report was verified electronically.
[2016-05-01] MEDS: TEMAZEPAM 15 MG CAP PO PRN (21:20)
[2016-05-02 00:11] VITALS: BP 124/72; PULSE 71; RESP 20; TEMP 97.5; O2SAT 97
[2016-05-02 04:10] VITALS: BP 111/67; PULSE 71; RESP 20; TEMP 97.5; O2SAT 96
[2016-05-02] MEDS: NITROGLYCERIN 2% OINT 1 GM PACKET TOPICAL SCH ×2 (05:08)
[2016-05-02] MEDS: SODIUM CHLOR 0.9% 1000 ML INJ 1,000 ML IV SCH (07:49)
[2016-05-02 08:00] VITALS: BP 124/71; PULSE 69; PULSE 76; RESP 18; TEMP 97.4; O2SAT 97
--- NOTE | 2016-05-02 08:10 | HHI.PR ---
Subjective Subjective Remarks s/p STT 05/01 no cp no dizziness no sob less anxious had a good night Dr. Estes evaluating, ok to dc Review of Systems Constitutional Constitutional Remarks 12 point ROS completed, negative except as noted above Vitals/Results Vital Signs Vital Signs Date Time Temp Pulse Resp B/P Pulse Ox O2 Delivery O2 Flow Rate FiO2 05/02/16 04:10 97.5 71 20 111/67 96 05/02/16 00:11 97.5 71 20 124/72 97 05/01/16 21:14 97.5 71 20 130/78 96 05/01/16 20:10 74 05/01/16 16:18 98.7 72 18 139/83 98 05/01/16 12:12 98.8 70 18 128/86 97 CBC/BMP: 05/01/16 0337 05/01/16 0337 Physical Exam General General Appearance: Well Developed, Well Nourished, No Acute Distress, Comfortable Eyes Eye Exam: Pupils Equal Ears & Nose Ears & Nose Exam: Nasal Mucosa [place] Throat Throat Exam: Oral Mucosa [place] & Moist Neck Neck Exam: Neck Supple, Trachea Midline Pulmonary Resp Exam: Clear Bilaterally Cardiology CV Exam: Regular, Good Perfusion Gastrointestinal/Abdomen GI Exam: Soft, Non-Tender, Bowel Sounds Present, Non-Distended Musculoskeletal MS Exam: Joints Intact Integumentary Skin Exam: Warm, Dry Extremeties Extremities Exam: No Edema, Pedal Pulses Palpable Neurologic Neuro Exam: Alert, Awake, Oriented, Speech Clear, Moving All Extremities, No Focal Deficits Psychiatric Psych Exam: Appropriate Responses VTE Prophylaxis VTE Prophylaxis Meds: Lovenox PUD Prophylasis PUD Prophylaxis: Protonix Assessment/Plan Problem List: (1) Precordial chest pain (2) Syncope (3) Uncontrolled hypertension (4) prior tobacco use (5) Anxiety Assessment/Plan appreciate cardiology input serial cardiac enzymes negative CUS results noted, CTA done, no stenosis Appreciate Dr. Estes's input, STT 05/01 negative, ok to dc. Recommends to continue BB f/u office Telemetry monitoring Continue Plavix/statins Continue Xanax, Prozac, Wellbutrin Continue PPI Lovenox for DVT prophylaxis Discussed lifestyle modification, diet, stress, meds Stable for discharge DC home today F/U Dr. Estes 2 weeks Diet-heart healthy Activity-as tolerated D/W RN D/W Dr. William D/W pt. This patient was seen by myself and Dr. William, this note is written on his behalf. Problem Qualifiers (1) Syncope: Qualified Code: R55 - Syncope, unspecified syncope type Elizabeth Whitten May 02, 2016 08:10
--- NOTE | 2016-05-02 08:11 | HHI.DCPOC ---
Discharge Care Plan Diagnosis: (1) Precordial chest pain (2) Syncope (3) Uncontrolled hypertension (4) prior tobacco use (5) Anxiety Your Health Problems Are: Chest Pain Goals to Promote Your Health * To prevent worsening of your condition and complications * To maintain your health at the optimal level Directions to Meet Your Goals Take your medications as prescribed Follow your dietary instruction Follow activity as directed Keep your appointments as scheduled Take your immunizations and boosters as scheduled If your symptoms worsen call your PCP, if no PCP go to Urgent Care Center or Emergency Room Smoking is Dangerous to Your Health. Avoid second hand smoke Call the 24-hour hour crisis hotline for domestic abuse at Elizabeth Whitten May 02, 2016 08:11
[2016-05-02 08:13] LABS: BICARBONATE 25.7 MEQ/L (21.0-32.0)
[2016-05-02] MEDS: CLOPIDOGREL 75 MG TAB PO SCH (08:18)
[2016-05-02] MEDS: SODIUM CHLORIDE 0.9% FLUSH 5 ML FLUSH FLUSH SCH (08:18)
[2016-05-02] MEDS: FLUoxetine HCL 20 MG CAP PO SCH (08:18)
[2016-05-02] MEDS: LISINOPRIL 20 MG TAB PO SCH (08:18)
[2016-05-02] MEDS: METOPROLOL TARTRATE 25 MG TAB PO SCH (08:19)
[2016-05-02] MEDS: buPROPion HCL 150 MG SUSTAINED RELEASE TAB PO SCH (08:19)
[2016-05-02] MEDS: PANTOPRAZOLE SOD 40 MG DELAYED RELEASE TAB PO SCH (08:19)
[2016-05-02] MEDS: FOLIC ACID 1 MG TAB PO SCH (08:19)
[2016-05-02] MEDS ORDERED: METO25TA3 PO (08:42)
--- NOTE | 2016-05-02 08:46 | PD.CARD.PN ---
Subjective Subjective Remarks no angina. no symptoms Objective Medications Current Medications Medications (Trade) Dose Ordered Sig/Johanna Route Start Time Stop Time Status Last Admin (NS 1000 ml Inj) 1,000 ml @ 100 mls/hr Q10H IV 04/30/16 15:49 05/01/16 05:47 (NS Flush) 2 ml UNSCH PRN FLUSH 04/30/16 16:00 (NS Flush) 2 ml BID FLUSH 04/30/16 21:00 05/02/16 08:18 (Tylenol) 650 mg Q4H PRN PO 04/30/16 16:00 05/01/16 15:59 (Zofran Inj) 4 mg Q6H PRN IVP 04/30/16 16:00 (Lovenox Inj) 40 mg Q24H SQ 04/30/16 15:00 05/01/16 15:59 (Narcan Inj) 0.4 mg UNSCH PRN IV 04/30/16 16:00 (Nitroglycerin 2% Oint) 1 inch Q6HR TOPICAL 04/30/16 18:00 (Plavix) 75 mg DAILY PO 05/01/16 09:00 05/02/16 08:18 (Protonix) 40 mg DAILY PO 05/01/16 09:00 05/02/16 08:19 (Lopressor) 12.5 mg Q12HR PO 04/30/16 21:00 05/02/16 08:19 (Restoril) 15 mg HS PRN PO 04/30/16 21:00 05/01/16 21:20 (Wellbutrin Sr) 150 mg BID PO 05/01/16 09:00 05/02/16 08:19 (PROzac) 20 mg BID PO 05/01/16 09:00 05/02/16 08:18 (Folate) 1 mg DAILY PO 05/01/16 09:00 05/02/16 08:19 (Prinivil) 20 mg DAILY PO 05/01/16 09:00 05/02/16 08:18 (Xanax) 0.5 mg Q8H PRN PO 05/01/16 16:00 05/01/16 15:58 Vital Signs / I&O Vital Signs Date Time Temp Pulse Resp B/P Pulse Ox O2 Delivery O2 Flow Rate FiO2 05/02/16 04:10 97.5 71 20 111/67 96 05/02/16 00:11 97.5 71 20 124/72 97 05/01/16 21:14 97.5 71 20 130/78 96 05/01/16 20:10 74 05/01/16 16:18 98.7 72 18 139/83 98 05/01/16 12:12 98.8 70 18 128/86 97 Physical Exam GENERAL: Well developed, well nourished. No acute distress. HEENT: Jugular venous pressure is normal. CHEST: Lungs clear to auscultation bilaterally. Unlabored respiratory effort. CARDIAC: Regular rate and rhythm without S3, S4, or murmur. ABDOMEN: Soft, nontender, no hepatosplenomegaly. Bowel sounds present. EXTREMITIES: No clubbing, cyanosis, or edema. Laboratory Laboratory Tests Test 05/02/16 05:55 Sodium Level 141 MEQ/L Potassium Level 4.0 MEQ/L Chloride Level 107 MEQ/L Carbon Dioxide Level 25.7 MEQ/L Anion Gap 8 MEQ/L Blood Urea Nitrogen 13 MG/DL Creatinine 0.98 MG/DL Estimat Glomerular Filtration 79 ML/MIN Rate Random Glucose 101 MG/DL Calcium Level 9.1 MG/DL Imaging Current Medications Medications (Trade) Dose Ordered Sig/Johanna Route Start Time Stop Time Status Last Admin (NS 1000 ml Inj) 1,000 ml @ 100 mls/hr Q10H IV 04/30/16 15:49 05/01/16 05:47 (NS Flush) 2 ml UNSCH PRN FLUSH 04/30/16 16:00 (NS Flush) 2 ml BID FLUSH 04/30/16 21:00 05/02/16 08:18 (Tylenol) 650 mg Q4H PRN PO 04/30/16 16:00 05/01/16 15:59 (Zofran Inj) 4 mg Q6H PRN IVP 04/30/16 16:00 (Lovenox Inj) 40 mg Q24H SQ 04/30/16 15:00 05/01/16 15:59 (Narcan Inj) 0.4 mg UNSCH PRN IV 04/30/16 16:00 (Nitroglycerin 2% Oint) 1 inch Q6HR TOPICAL 04/30/16 18:00 (Plavix) 75 mg DAILY PO 05/01/16 09:00 05/02/16 08:18 (Protonix) 40 mg DAILY PO 05/01/16 09:00 05/02/16 08:19 (Lopressor) 12.5 mg Q12HR PO 04/30/16 21:00 05/02/16 08:19 (Restoril) 15 mg HS PRN PO 04/30/16 21:00 05/01/16 21:20 (Wellbutrin Sr) 150 mg BID PO 05/01/16 09:00 05/02/16 08:19 (PROzac) 20 mg BID PO 05/01/16 09:00 05/02/16 08:18 (Folate) 1 mg DAILY PO 05/01/16 09:00 05/02/16 08:19 (Prinivil) 20 mg DAILY PO 05/01/16 09:00 05/02/16 08:18 (Xanax) 0.5 mg Q8H PRN PO 05/01/16 16:00 05/01/16 15:58 Assessment and Plan Problem List: (1) Syncope Assessment and Plan: no recurrence. no pacemaker dysfunction (2) Coronary artery disease Assessment and Plan: no angina. SPECT without significant ischemia (3) Anxiety (4) Carotid artery disease Assessment and Plan: not hemodynamically significant stenosis Assessment and Plan OK to discharge home. I will follow as outpatient. Problem Qualifiers (1) Syncope: Qualified Code: R55 - Syncope, unspecified syncope type Kali Estes MD May 02, 2016 08:46
--- NOTE | 2016-05-02 11:17 | HHI.DS ---
Discharge Summary Admission Date Apr 30, 2016 at 15:33 Admitting Diagnosis chest pain, syncope (1) Precordial chest pain Diagnosis: Principal (2) Syncope Diagnosis: Principal (3) Uncontrolled hypertension Diagnosis: Principal (4) prior tobacco use Diagnosis: Principal (5) Anxiety Diagnosis: Principal (6) Coronary artery disease Diagnosis: Principal (7) Carotid artery disease Brief History Patient was admitted because of the chest pressure and pain. Also has a syncopal episode. Patient was admitted and monitored on telemetry. Pacemaker was interrogated. Patient was seen and followed by [facility]. Carotid ultrasound was done. Which was showing some abnormality. CTA neck was done which did not show any significant stenosis. Patient is asymptomatic and overall stable. As per cardiology can be discharged. As patient is overall a stable and good condition plan to discharge him home to be followed by his primary care Dr. and cardiology as outpatient. During his stay PA ruled out. CBC/BMP: 05/01/16 0337 05/02/16 0555 Significant Findings Laboratory Tests Test 04/30/16 04/30/16 05/01/16 05/02/16 12:46 21:33 03:37 05:55 Estimat Glomerular Filtration 81 ML/MIN (>89) 67 ML/MIN (>89) 79 ML/MIN (>89) Rate Troponin I LESS THAN 0.02 LESS THAN 0.02 LESS THAN 0.02 NG/ML NG/ML NG/ML (0.02-0.05) (0.02-0.05) (0.02-0.05) Calcium Level 8.4 MG/DL (8.5-10.1) Pt Condition on Discharge: Stable Discharge Disposition: Discharge Home Discharge Instructions DIET: Follow Instructions for: Heart Healthy Diet Activities you can perform: Weight Bearing as Nati Follow up Referrals: Cardiology - 2 Weeks with Kali Estes MD PCP Follow-up New Medications: Metoprolol Tartrate (Metoprolol Tartrate) 25 Mg Tab 12.5 MG PO Q12HR Blood Pressure Management #30 Ref 1 TAB Continued Medications: Alprazolam (Alprazolam) 0.5 Mg Tab 0.5 MG PO Q8H PRN ANXIETY Ref 0 TAB Bupropion HCl ER 24 HR (Wellbutrin Xl 24 HR) 300 Mg Tab 300 MG PO DAILY Control Depression Ref 0 TAB Clopidogrel (Clopidogrel) 75 Mg Tab 75 MG PO DAILY Blood Clot Prevention #30 Ref 0 TAB Evolocumab PF Inj (Repatha PF Inj) 140 Mg/Ml Syr Fluoxetine (Prozac) 20 Mg Cap 20 MG PO BID #30 Ref 0 CAP Folic Acid (Folic Acid) 5 Mg Cap 5 MG PO DAILY Nutritional Supplement Ref 0 CAP Quinapril (Quinapril) 20 Mg Tab 20 MG PO DAILY #30 Ref 0 TAB Onofre William MD May 02, 2016 11:17
== END 2016-05-02 12:40 | disposition home or self-care (01) ==
LOC: NEPC 11:38 → NEDA 15:33 → NEPGCP 18:54
PROVIDERS: ADMIT Specialist; ATTEND Specialist
DX: R55 Syncope and collapse (principal); R07.2 Precordial pain; I25.10 Atherosclerotic heart disease of native coronary artery without angina pectoris; I10 Essential (primary) hypertension; F41.9 Anxiety disorder, unspecified; I73.9 Peripheral vascular disease, unspecified; E11.9 Type 2 diabetes mellitus without complications; E78.5 Hyperlipidemia, unspecified; I25.2 Old myocardial infarction; J44.9 Chronic obstructive pulmonary disease, unspecified; E78.00 Pure hypercholesterolemia, unspecified; K58.9 Irritable bowel syndrome, unspecified; G47.33 Obstructive sleep apnea (adult) (pediatric); M19.90 Unspecified osteoarthritis, unspecified site; Z95.0 Presence of cardiac pacemaker; Z95.5 Presence of coronary angioplasty implant and graft; Z87.891 Personal history of nicotine dependence; Z85.820 Personal history of malignant melanoma of skin
CPT/HCPCS: 70498; 71010; 78452; 80048; 82550; 84484; 85025; 93005; 93017; 93306; 93880; 99285; A9502; G0378; J1650; J2785; J7030; Q9967